=== PATIENT | male | born 1940 | race Caucasian/White ===

== ENCOUNTER 2021-03-30 01:09 | Outpatient (CLI) | payer MEDICAID, SELFPAY ==
--- NOTE | 2021-03-30 09:15 | DI.NM_ITS ---
APPROVED REPORT Exam: Pharmacologic Patient Location: Out-Patient Room/Bed: Stress Nurse: Ellen Quiroga RN Ordering Provider:ANDREW JARVIS MD Contact Number: [phone] BMI: 35.80 Baseline Rhythm: Sinus Rhythm Comment: 1DHB, minimal ST depression in inferior leads, frequent PVCs Indications: NSTEMI Medical History Medical History: Hyperlipidemia, obesity, COPD, hypothyroidism, bipolar, [place], hx 2DHB, tremors, amnes ia, dyspnea, general unsteadiness, R hip pain Cardiac Medications: Albuterol sulfate, aspirin, furosemide, lamotrigine, levothyroxine, lithium carb orly, symbicort, carbidopa-levodopa Allergies: Grass, pollen, sulfa, hay fever Cardiac Risk Factors: hyperlipidemia, obesity, family hx, COPD, smoker (fromer) Previous Cardiac Procedures: None Pretest Chest Pain Characteristics: None Exercise History: Sedentary Physical Disabilities: R hip, gait unsteady Lung Sounds: Expiratory wheezes Heart Sounds: Regular Stress Test Details Test: Pharmacologic stress testing performed using 0.4 mg of regadenoson per 5 mL given IV over 10 s econds. Reason for pharmacologic stress test: physical limitation. Nuclear Acquisition: Rest Tc-99m/Stress Tc-99m 1 day Rest Isotope: Tc-99m Sestamibi. Dose: 14.5 Date: 03/30/2021 Injection Time: 0920 Stress Isotope: Tc-99m Sestamibi. Dose: 47.0 Date: 03/30/2021 Injection Time: 1125 HR Resting HR Supine: 75 bpm Max Heart Rate (APMHR): 138.318736 bpm Target HR (85% APMHR): 117.289366 bpm Max HR Achieved: 89 bpm % of APMHR: 64.49 Recovery HR: 76 bpm BP Resting BP Supine: 150/70 mmHg Max BP: 152/68 mmHg Recovery BP: 142/70 mmHg ECG Resting ECG: Sinus Rhythm, 1DHB Ectopy: Frequent PVCs Comment: minimal ST depression in inferior leads Stress ECG: Sinus Rhythm, 1DHB ST Change: No significant ST segment changes noted. Nondiagnostic low heart rate Arrhythmia: Frequent PVCs Recovery ECG: Sinus Rhythm, 1DHB Recovery ST Change: No significant ST segment changes noted. Nondiagnostic low heart rate Recovery Arrhythmia: Frequent multifocal PVCs Clinical Stress Symptoms: Dyspnea Rate Pressure Product: [id number] Stress ECG Conclusion 1. The resting electrocardiogram showed voltage for left ventricular hypertrophy, poor R wave progres gabi 2. Patient underwent pharmacologic stress with regadenoson 3. Blunted hemodynamics. Peak heart rate achieved was 64% of maximal for age 4. Electrocardiographically the test was nondiagnostic due to inadequate heart rate 5. Ventricular ectopic beats were noted Stress Test Summary STAGE HR BP Symptoms NOTES Supine 75 150/70 SpO2 92% 1 min post Lexiscan injection 85 152/68 Mild SOB, SpO2 95% 3 min post Lexiscan injection 79 148/70 SpO2 94% 6 min post Lexiscan injection 76 142/70 SOB resolved, SpO2 93% MPI Conclusion Anteroapical ischemia, small area of apical infarction EF is 38%, anteroapical hypokinesis Radiologist Interpretation Radiologist agrees with Director [employer]'s Interpretation. Radiologist Interpretation by: Lo Raygoza MD Interpretation Date/Time: 03/30/2021 16:40:11
[2021-03-30] MEDS: Regadenoson 0.4 MG/5 ML SYR IVP (11:34)
== END 2021-03-30 01:29 ==
PROVIDERS: PCP Family Medicine; Visit Provider Internal Medicine Interventional Cardiology
DX: I21.4 Non-ST elevation (NSTEMI) myocardial infarction (principal); I49.3 Ventricular premature depolarization; E78.5 Hyperlipidemia, unspecified; E66.9 Obesity, unspecified; Z82.49 Family history of ischemic heart disease and other diseases of the circulatory system; J44.9 Chronic obstructive pulmonary disease, unspecified; Z87.891 Personal history of nicotine dependence; R94.39 Abnormal result of other cardiovascular function study
CPT/HCPCS: 78452; 93016; 93018; 93017; J2785